=== PATIENT | male | born 1975 | race Caucasian/White ===

== ENCOUNTER 2024-04-19 10:14 | Inpatient (IN) | payer MEDICAID, OTHER ==
[~2024-04-19] VITALS: Ht 175.3 cm; Wt 84.0 kg
[2024-04-19 10:28] VITALS: PULSE 70; RESP 15; O2SAT 95
[2024-04-19 11:31] LABS: Urine Bacteria None Seen /hpf (None Seen)
[2024-04-19 11:40] LABS: Basophils # (auto) 0 10 ^3/uL (0-0.2); Basophils % (auto) 0.4 % (0.0-2.0); Eosinophils # (auto) 0.4 10 ^3/uL (0-0.8); Eosinophils % (auto) 3.8 % (0.0-7.0); Hematocrit 40.7 % (41.0-53.0); Hemoglobin 13.9 g/dL (13.5-17.5); Lymphocytes # (auto) 1.4 10 ^3/uL (0.4-5.4); Lymphocytes % (auto) 14.4 % (10.0-50.0); Mean Corpuscular Hemoglobin 31.4 pg (28.0-32.0); Mean Corpuscular Hgb Conc. 34.2 g/dL (32.0-36.0); Mean Corpuscular Volume 91.9 fL (80.0-100.0); Monocytes # (auto) 0.5 10 ^3/uL (0-1.3); Monocytes % (auto) 5.3 % (0.0-12.0); Neutrophils # (auto) 7.2 10 ^3/uL (1.6-8.6); Neutrophils % (auto) 76.1 % (37.0-80.0); Nucleated Red Blood Cells % 0.1 %; Red Blood Cells 4.43 10^6/uL (4.5-5.90); Red Cell Distribution Width 14.2 % (11.8-14.3); White Blood Cell 9.4 10^3/uL (4.4-10.8)
[2024-04-19 11:52] LABS: Urine Blood Negative /uL (Negative); Urine Clarity Clear (Clear); Urine Color Light-Yellow (Yellow); Urine Protein, UAD Negative (Negative); Urine Specific Gravity 1.012 (1.001-1.035); Urine Urobilinogen Normal (Negative); Urine WBC <1 /hpf (0 - 3); Urine pH 5.5 (5.0-9.0)
[2024-04-19 11:55] LABS: Alanine Aminotransferase 21 U/L (7-40); Albumin 4.6 g/dL (3.2-4.8); Alkaline Phosphatase 76 U/L (46-116); Anion Gap 2 (5-15); Aspartate Aminotransferase < 8 U/L (13-40); BUN/Creatinine Ratio 17.4 (10.0-20.0); Blood Urea Nitrogen 23 mg/dL (9-23); Calcium 9.6 mg/dL (8.5-10.1); Carbon Dioxide 30 mmol/L (20-30); Chloride 109 mmol/L (98-107); Glucose 102 mg/dL (74-106); Magnesium 1.8 mg/dL (1.6-2.6); Potassium 3.6 mmol/L (3.5-5.1); Sodium 141 mmol/L (136-145)
[2024-04-19 11:56] LABS: Bilirubin, Total 0.6 mg/dL (0.2-1.0); Total Protein 7.1 g/dL (5.7-8.2)
[2024-04-19] MEDS ORDERED: MORPHINE SULFATE INJ 2 MG/ml SYRG IV PRN (14:00)
[2024-04-19] MEDS ORDERED: NITROGLYCERIN 0.4 MG SL TAB SL PRN (14:00)
[2024-04-19 14:23] LABS: Magnesium 1.8 mg/dL (1.6-2.6)
[2024-04-19 14:24] LABS: Phosphorus 3.1 mg/dL (2.4-5.1)
[2024-04-19 19:30] VITALS: O2SAT 98
[2024-04-19] MEDS: ATORVASTATIN 20 MG TAB PO SCH (22:00)
[2024-04-19] MEDS ORDERED: LORazepam 2MG/ML-1ML VIAL IV PRN (23:00)
[2024-04-20] VITALS (9 sets, daily range): BP systolic 128–163; BP diastolic 78–95; PULSE 58–76; RESP 17–18; TEMP 97.2–98.9; O2SAT 93–98
[2024-04-20 06:34] LABS: Triglycerides 220 mg/dL (< 150)
[2024-04-20 06:35] LABS: LDL Cholesterol 65 mg/dL (< 100)
[2024-04-20 06:36] LABS: Cholesterol 134 mg/dL (< 200); HDL Cholesterol 34 mg/dL (40-59)
[2024-04-20] MEDS: CLOPIDOGREL BISULFATE 75 MG TAB PO SCH (09:53)
[2024-04-20] MEDS: ASPirin 81 mg TAB PO SCH (09:53)
[2024-04-20] MEDS: ENOXAPARIN SOD 40 MG/0.4 ML SYRINGE SC SCH (09:54)
[2024-04-20] MEDS: amLODIPine BESYLATE 5 MG TAB PO ONE (19:00)
[2024-04-21 01:00] VITALS: BP 137/91; PULSE 59; RESP 18; TEMP 98.4; O2SAT 100
[2024-04-21 05:00] VITALS: BP 136/91; PULSE 63; RESP 18; TEMP 97.9; O2SAT 96
[2024-04-21 08:00] VITALS: PULSE 62
[2024-04-21 09:00] VITALS: BP 139/83; PULSE 70; RESP 18; TEMP 97.8; O2SAT 95
[2024-04-21] MEDS: amLODIPine BESYLATE 5 MG TAB PO SCH (09:40)
[2024-04-21 13:00] VITALS: BP 139/105; PULSE 81; RESP 20; TEMP 98.7; O2SAT 94
[2024-04-21 17:00] VITALS: BP 146/103; PULSE 78; RESP 16; TEMP 98.7; O2SAT 94
== END 2024-04-21 20:09 | disposition home or self-care (01) | DRG 204 ==
LOC: ER 10:14 → EDBD 10:14 → TELE 14:03 → TELE-CENTR 23:45
PROVIDERS: ADMIT Internal Medicine; ATTEND Emergency Medicine
DX: R55 Syncope and collapse (principal); I69.351 Hemiplegia and hemiparesis following cerebral infarction affecting right dominant side; R47.01 Aphasia; K21.9 Gastro-esophageal reflux disease without esophagitis; F17.200 Nicotine dependence, unspecified, uncomplicated; E78.5 Hyperlipidemia, unspecified; I25.10 Atherosclerotic heart disease of native coronary artery without angina pectoris; G47.00 Insomnia, unspecified; I10 Essential (primary) hypertension; Z79.01 Long term (current) use of anticoagulants; Z79.82 Long term (current) use of aspirin; Z79.899 Other long term (current) drug therapy; Z79.02 Long term (current) use of antithrombotics/antiplatelets
CPT/HCPCS: 36415; 70450; 71045; 80053; 80061; 81001; 83605; 83735; 84100; 84484; 85025; 86592; 87081; 93005; 93306; 93886; 95819; 97116; 97163; 97530; G0378

== ENCOUNTER 2024-05-24 09:43 | Inpatient (IN) | payer MEDICAID ==
[~2024-05-24] VITALS: Ht 177.8 cm; Wt 82.7 kg
[2024-05-24 10:44] LABS: Basophils # (auto) 0 10 ^3/uL (0-0.2); Basophils % (auto) 0.5 % (0.0-2.0); Eosinophils # (auto) 0.3 10 ^3/uL (0-0.8); Eosinophils % (auto) 3.4 % (0.0-7.0); Hematocrit 41.5 % (41.0-53.0); Hemoglobin 13.8 g/dL (13.5-17.5); Lymphocytes # (auto) 1.2 10 ^3/uL (0.4-5.4); Lymphocytes % (auto) 15.1 % (10.0-50.0); Mean Corpuscular Hemoglobin 31.3 pg (28.0-32.0); Mean Corpuscular Hgb Conc. 33.4 g/dL (32.0-36.0); Mean Corpuscular Volume 93.7 fL (80.0-100.0); Monocytes # (auto) 0.5 10 ^3/uL (0-1.3); Monocytes % (auto) 6.1 % (0.0-12.0); Neutrophils # (auto) 6.1 10 ^3/uL (1.6-8.6); Neutrophils % (auto) 74.9 % (37.0-80.0); Nucleated Red Blood Cells % 0.1 %; Platelet Count (auto) 268 10^3/uL (140-450); Red Blood Cells 4.42 10^6/uL (4.5-5.90); Red Cell Distribution Width 13.8 % (11.8-14.3); White Blood Cell 8.1 10^3/uL (4.4-10.8)
[2024-05-24 10:52] LABS: Chloride 109 mmol/L (98-107); Potassium 3.7 mmol/L (3.5-5.1); Sodium 141 mmol/L (136-145)
[2024-05-24 10:53] LABS: Anion Gap 5 (5-15); Carbon Dioxide 27 mmol/L (20-30)
[2024-05-24 10:54] LABS: Calcium 9.4 mg/dL (8.7-10.4)
[2024-05-24 10:58] LABS: Glucose 89 mg/dL (74-106)
[2024-05-24 10:59] LABS: Blood Urea Nitrogen 17 mg/dL (9-23)
[2024-05-24 12:00] VITALS: PULSE 68; RESP 19; O2SAT 96
[2024-05-24] MEDS: SODIUM CHLORIDE 0.9% 1,000 ML IV ONE (13:12)
[2024-05-24] MEDS: LORazepam 2MG/ML-1ML VIAL IV ONE (13:12)
[2024-05-24] MEDS ORDERED: ONDANSETRON HCL 4 MG/2 ML VIAL IV PRN ×2 (13:45→14:30)
[2024-05-24] MEDS ORDERED: HYDROcodone-ACET 5/325MG TAB PO PRN (13:45)
[2024-05-24] MEDS ORDERED: LORazepam 2MG/ML-1ML VIAL IV PRN (13:45)
[2024-05-24] MEDS ORDERED: ACETAMINOPHEN 325 MG TAB PO PRN (13:45)
[2024-05-24] MEDS ORDERED: DOCUSATE SOD 100 MG CAP PO PRN (13:45)
[2024-05-24 14:11] LABS: Urine Bacteria None Seen /hpf (None Seen)
[2024-05-24] MEDS: SODIUM CHLOR 0.9% PF (SALINE LOCK) 10ML VIAL/SYR IV SCH (14:21)
[2024-05-24 14:25] LABS: Urine Blood Negative /uL (Negative); Urine Clarity Clear (Clear); Urine Color Colorless (Yellow); Urine Protein, UAD Negative (Negative); Urine Specific Gravity 1.008 (1.001-1.035); Urine Urobilinogen Normal (Negative); Urine WBC <1 /hpf (0 - 3); Urine pH 5.5 (5.0-9.0)
[2024-05-24] MEDS ORDERED: NITROGLYCERIN 0.4 MG SL TAB SL PRN (15:00)
[2024-05-24] MEDS ORDERED: MORPHINE SULFATE INJ 2 MG/ml SYRG IV PRN (15:00)
[2024-05-24] MEDS: levETIRAcetam 1000 mg/100ml 100 ML IV ONE (15:08)
[2024-05-24] MEDS: FAMOTIDINE (10MG/ML) 2ML VL IV SCH (23:07)
[2024-05-24] MEDS: ATORVASTATIN 20 MG TAB PO SCH (23:08)
[2024-05-24] MEDS: METOPROLOL TARTRATE 25 MG TAB PO SCH (23:08)
[2024-05-24] MEDS: APIXABAN 2.5 MG TAB PO SCH (23:08)
[2024-05-25 06:13] LABS: Basophils # (auto) 0 10 ^3/uL (0-0.2); Basophils % (auto) 0.5 % (0.0-2.0); Eosinophils # (auto) 0.3 10 ^3/uL (0-0.8); Eosinophils % (auto) 2.9 % (0.0-7.0); Hematocrit 40.3 % (41.0-53.0); Hemoglobin 14.2 g/dL (13.5-17.5); Lymphocytes # (auto) 1.9 10 ^3/uL (0.4-5.4); Lymphocytes % (auto) 19.6 % (10.0-50.0); Mean Corpuscular Hemoglobin 32.4 pg (28.0-32.0); Mean Corpuscular Hgb Conc. 35.1 g/dL (32.0-36.0); Mean Corpuscular Volume 92.1 fL (80.0-100.0); Monocytes # (auto) 0.7 10 ^3/uL (0-1.3); Monocytes % (auto) 6.8 % (0.0-12.0); Neutrophils # (auto) 6.9 10 ^3/uL (1.6-8.6); Neutrophils % (auto) 70.2 % (37.0-80.0); Platelet Count (auto) 256 10^3/uL (140-450); Red Blood Cells 4.37 10^6/uL (4.5-5.90); Red Cell Distribution Width 13.8 % (11.8-14.3); White Blood Cell 9.8 10^3/uL (4.4-10.8)
[2024-05-25 06:25] LABS: Alanine Aminotransferase 15 U/L (7-40); Albumin 4.3 g/dL (3.2-4.8); Alkaline Phosphatase 77 U/L (46-116); Anion Gap 4 (5-15); Aspartate Aminotransferase < 8 U/L (13-40); BUN/Creatinine Ratio 9.6 (10.0-20.0); Bilirubin, Total 1.4 mg/dL (0.2-1.0); Blood Urea Nitrogen 13 mg/dL (9-23); Calcium 9.2 mg/dL (8.7-10.4); Carbon Dioxide 29 mmol/L (20-30); Chloride 110 mmol/L (98-107); Glucose 84 mg/dL (74-106); Potassium 3.3 mmol/L (3.5-5.1); Sodium 143 mmol/L (136-145); Total Protein 6.7 g/dL (5.7-8.2)
[2024-05-25 09:50] LABS: Triglycerides 102 mg/dL (< 150)
[2024-05-25 09:51] LABS: LDL Cholesterol 59 mg/dL (< 100)
[2024-05-25 09:52] LABS: HDL Cholesterol 34 mg/dL (40-59)
[2024-05-25 09:53] LABS: Cholesterol 111 mg/dL (< 200)
[2024-05-25 10:21] LABS: Amphetamine Screen, Urine Neg (NEGATIVE)
[2024-05-25 10:22] LABS: Barbiturate Scree,Urine Neg (NEGATIVE); Benzodiazephine Screen, Urine Neg (NEGATIVE); Cannabinoid Screen, Urine Pos (NEGATIVE); Cocaine Screen, Urine Neg (NEGATIVE); Opiate Scree,Urine Neg (NEGATIVE); Phencyclidine Screen, Urine Neg (NEGATIVE)
[2024-05-25 11:00] VITALS: PULSE 65; RESP 14; O2SAT 95
[2024-05-25 19:30] VITALS: PULSE 78; RESP 13; O2SAT 97
[2024-05-25 22:40] LABS: Basophils # (auto) 0.1 10 ^3/uL (0-0.2); Basophils % (auto) 0.6 % (0.0-2.0); Eosinophils # (auto) 0.4 10 ^3/uL (0-0.8); Eosinophils % (auto) 3.8 % (0.0-7.0); Hematocrit 42.3 % (41.0-53.0); Hemoglobin 14.4 g/dL (13.5-17.5); Lymphocytes # (auto) 2.5 10 ^3/uL (0.4-5.4); Mean Corpuscular Hemoglobin 31.5 pg (28.0-32.0); Mean Corpuscular Hgb Conc. 33.9 g/dL (32.0-36.0); Mean Corpuscular Volume 92.7 fL (80.0-100.0); Monocytes # (auto) 0.8 10 ^3/uL (0-1.3); Neutrophils # (auto) 6.5 10 ^3/uL (1.6-8.6); Neutrophils % (auto) 63.6 % (37.0-80.0); Nucleated Red Blood Cells % 0.1 %; Platelet Count (auto) 254 10^3/uL (140-450); Red Blood Cells 4.57 10^6/uL (4.5-5.90); Red Cell Distribution Width 13.7 % (11.8-14.3); White Blood Cell 10.3 10^3/uL (4.4-10.8)
[2024-05-25 22:48] LABS: Chloride 109 mmol/L (98-107); Potassium 3.4 mmol/L (3.5-5.1); Sodium 142 mmol/L (136-145)
[2024-05-25 22:49] LABS: Anion Gap 2 (5-15); Carbon Dioxide 31 mmol/L (20-30)
[2024-05-25 22:50] LABS: Calcium 9.4 mg/dL (8.7-10.4)
[2024-05-25 22:55] LABS: BUN/Creatinine Ratio 11.2 (10.0-20.0); Blood Urea Nitrogen 16 mg/dL (9-23); Glucose 98 mg/dL (74-106)
[2024-05-25 23:09] VITALS: PULSE 63; RESP 18; O2SAT 96
[2024-05-25] MEDS ORDERED: HALOPERIDOL LACTATE 5 MG/ML INJ VIAL IM PRN (23:30)
[2024-05-25 23:55] VITALS: BP 167/105; PULSE 87; RESP 20; TEMP 97.6; O2SAT 87
[2024-05-26] VITALS (8 sets, daily range): BP systolic 121–154; BP diastolic 76–98; PULSE 66–81; RESP 16–20; TEMP 97.9–98.1; O2SAT 96–99
[2024-05-26] MEDS: hydrALAZINE HCL 20 MG/ML VL IV PRN (00:19)
[2024-05-26 07:27] LABS: Alanine Aminotransferase 15 U/L (7-40); Albumin 4.2 g/dL (3.2-4.8); Alkaline Phosphatase 76 U/L (46-116); Anion Gap 6 (5-15); Aspartate Aminotransferase < 8 U/L (13-40); BUN/Creatinine Ratio 12.2 (10.0-20.0); Bilirubin, Total 1.3 mg/dL (0.2-1.0); Blood Urea Nitrogen 16 mg/dL (9-23); Calcium 9.3 mg/dL (8.7-10.4); Carbon Dioxide 28 mmol/L (20-30); Chloride 109 mmol/L (98-107); Glucose 85 mg/dL (74-106); Potassium 3.1 mmol/L (3.5-5.1); Sodium 143 mmol/L (136-145); Total Protein 6.6 g/dL (5.7-8.2)
[2024-05-26] MEDS: POTASSIUM CHL 20 Meq TABLET PO ONE (09:33)
[2024-05-26 21:54] LABS: Alanine Aminotransferase 13 U/L (7-40); Albumin 4.3 g/dL (3.2-4.8); Alkaline Phosphatase 76 U/L (46-116); Anion Gap 4 (5-15); Aspartate Aminotransferase < 8 U/L (13-40); BUN/Creatinine Ratio 9.6 (10.0-20.0); Blood Urea Nitrogen 13 mg/dL (9-23); Calcium 9.4 mg/dL (8.7-10.4); Carbon Dioxide 26 mmol/L (20-30); Chloride 110 mmol/L (98-107); Glucose 95 mg/dL (74-106); Sodium 140 mmol/L (136-145)
[2024-05-26 21:55] LABS: Bilirubin, Total 1.1 mg/dL (0.2-1.0); Total Protein 6.8 g/dL (5.7-8.2)
[2024-05-27 04:34] VITALS: BP 144/91; PULSE 77; RESP 18; TEMP 98.2; O2SAT 99
[2024-05-27 08:10] VITALS: PULSE 64; PULSE 80; RESP 20; O2SAT 96
[2024-05-27 09:00] VITALS: BP 144/90; PULSE 64; RESP 18; TEMP 98; O2SAT 93
[2024-05-27 09:29] LABS: Alanine Aminotransferase 15 U/L (7-40); Albumin 4.4 g/dL (3.2-4.8); Alkaline Phosphatase 76 U/L (46-116); Anion Gap 6 (5-15); Aspartate Aminotransferase < 8 U/L (13-40); BUN/Creatinine Ratio 8.8 (10.0-20.0); Blood Urea Nitrogen 12 mg/dL (9-23); Calcium 9.1 mg/dL (8.7-10.4); Carbon Dioxide 24 mmol/L (20-30); Chloride 110 mmol/L (98-107); Glucose 85 mg/dL (74-106); Potassium 3.9 mmol/L (3.5-5.1); Sodium 140 mmol/L (136-145)
[2024-05-27 09:30] LABS: Bilirubin, Total 1.3 mg/dL (0.2-1.0)
[2024-05-27 09:32] LABS: Total Protein 7.1 g/dL (5.7-8.2)
[2024-05-27 13:00] VITALS: BP 140/87; PULSE 67; RESP 18; TEMP 98.2; O2SAT 94
[2024-05-27 14:04] VITALS: BP 140/87; PULSE 67; RESP 18; TEMP 98.2; O2SAT 94
== END 2024-05-27 17:01 | disposition home or self-care (01) | DRG 53 ==
LOC: EDBD 09:43 → ER 09:51 → TELE 15:01 → TELE-WESTW 05-25 22:50
PROVIDERS: ADMIT Internal Medicine; ATTEND Emergency Medicine
DX: G40.409 Other generalized epilepsy and epileptic syndromes, not intractable, without status epilepticus (principal); N17.0 Acute kidney failure with tubular necrosis; I69.351 Hemiplegia and hemiparesis following cerebral infarction affecting right dominant side; E78.5 Hyperlipidemia, unspecified; I48.91 Unspecified atrial fibrillation; R47.01 Aphasia; E87.6 Hypokalemia; I10 Essential (primary) hypertension; Z79.01 Long term (current) use of anticoagulants; Z79.899 Other long term (current) drug therapy
CPT/HCPCS: 36415; 70450; 80048; 80053; 80061; 80307; 81001; 82306; 82542; 82550; 82607; 83036; 83735; 85025; 93005; G0378; J3490

== ENCOUNTER 2024-09-24 08:00 | Inpatient (IN) | payer MEDICAID ==
[~2024-09-24] VITALS: Ht 177.8 cm; Wt 81.5 kg
[2024-09-24 08:30] VITALS: PULSE 79; RESP 18; O2SAT 97
[2024-09-24 09:02] LABS: Basophils # (auto) 0.1 10 ^3/uL (0-0.2); Basophils % (auto) 0.8 % (0.0-2.0); Eosinophils # (auto) 0.4 10 ^3/uL (0-0.8); Eosinophils % (auto) 4.5 % (0.0-7.0); Hemoglobin 14.8 g/dL (13.5-17.5); Lymphocytes # (auto) 1.4 10 ^3/uL (0.4-5.4); Lymphocytes % (auto) 17.3 % (10.0-50.0); Mean Corpuscular Hemoglobin 31.8 pg (28.0-32.0); Mean Corpuscular Hgb Conc. 33.6 g/dL (32.0-36.0); Mean Corpuscular Volume 94.4 fL (80.0-100.0); Monocytes # (auto) 0.4 10 ^3/uL (0-1.3); Monocytes % (auto) 5.7 % (0.0-12.0); Neutrophils # (auto) 5.7 10 ^3/uL (1.6-8.6); Neutrophils % (auto) 71.7 % (37.0-80.0); Platelet Count (auto) 317 10^3/uL (140-450); Red Blood Cells 4.66 10^6/uL (4.5-5.90); Red Cell Distribution Width 13.5 % (11.8-14.3); White Blood Cell 7.9 10^3/uL (4.4-10.8)
[2024-09-24 09:04] LABS: Potassium 4.1 mmol/L (3.5-5.1); Sodium 143 mmol/L (136-145)
[2024-09-24 09:05] LABS: Anion Gap 8 (5-15); Carbon Dioxide 27 mmol/L (20-31)
[2024-09-24 09:06] LABS: Calcium 9.8 mg/dL (8.7-10.4)
[2024-09-24 09:10] LABS: BUN/Creatinine Ratio 20.4 (10.0-20.0); Glucose 94 mg/dL (74-106)
[2024-09-24 09:11] LABS: Blood Urea Nitrogen 30 mg/dL (9-23); Chloride 108 mmol/L (98-107)
--- NOTE | 2024-09-24 09:22 | ED.PDOC ---
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 Caregiver reports on the witnessing the pt having a seizure and assisting the pt onto the ground today. It is unclear whether pt is taking seizure medication, as I do not see one on his medication list. Pt denies pain or recent illness. He has h/o global aphasia, so history is limited. Chief Complaint: Seizure Time Seen by MD: 08:40 Primary Care Provider: MOO Reviewed Notes: Nurses Notes, Medications, Allergies Allergies: Coded Allergies: NO KNOWN ALLERGIES (Unverified , 04/19/24) Home Meds No Active Prescriptions or Reported Meds Information Source: Patient Mode of Arrival: EMS Severity: Moderate Timing: Minutes Duration: Since onset, Minutes Prehospital treatment: None Past Medical History PAST MEDICAL HISTORY: CKF, CVA, High Lipids, Seizures Past Medical History (Other): Left MCA Chronic Stroke w/ Residual Right Sided Weakness, Epilepsy Surgical History: Denies all surgeries Surgical History (Other): Family History Family History: Reviewed,noncontributory to illness, Unknown Social History Smoker: Non-Smoker Alcohol: Denies ETOH Use Drugs: Denies Drug Use Lives In: Home Constitutional: denies: chills, diaphoresis, fatigue, fever, malaise, sweats, weakness, others EENTM: denies: blurred vision, double vision, ear bleeding, ear discharge, ear drainage, ear pain, ear ringing, eye pain, eye redness, hearing loss, mouth pain, mouth swelling, nasal discharge, nose bleeding, nose congestion, nose pain, photophobia, tearing, throat pain, throat swelling, voice changes, others Respiratory: denies: cough, hemoptysis, orthopnea, SOB at rest, shortness of breath, SOB with excertion, stridor, wheezing, others Cardiovascular: denies: chest pain, dizzy spells, diaphoresis, Dyspnea on exertion, edema, irregular heart beat, left arm pain, lightheadedness, palpitations, PND, syncope, others Gastrointestinal: denies: abdomen distended, abdominal pain, blood streaked bowels, constipated, diarrhea, dysphagia, difficulty swallowing, hematemesis, melena, nausea, poor appetite, poor fluid intake, rectal bleeding, rectal pain, vomiting, others Genitourinary: denies: burning, dysuria, flank pain, frequency, hematuria, incontinence, penile discharge, penile sore, pain, testicle pain, testicle swelling, urgency, others Neurological: reports: seizure; denies: dizziness, fainting, headache, left sided numbness, left sided weakness, numbness, paresthesia, pre-existing deficit, right sided numbness, right sided weakness, speech problems, tingling, tremors, weakness, others Musculoskeletal: denies: back pain, gout, joint pain, joint swelling, muscle pain, muscle stiffness, neck pain, others Integumetry: denies: bruises, change in color, change in hair/nails, dryness, laceration, lesions, lumps, rash, wounds, others Allergic/Immunocompromised: denies: Difficulty Healing, Frequent Infections, Hives, Itching, others Hematologic/Lymphatic: denies: anemia, blood clots, easy bleeding, easy bruising, swollen glands, others Endocrine: denies: excessive hunger, excessive sweating, excessive thirst, excessive urination, flushing, intolerance to cold, intolerance to heat, u nexplained weight gain, unexplained weight loss, others Psychiatric: denies: anxiety, bipolar disorder, depression, hopeless, panic disorder, schizophrenia, sleepless, suicidal, others All Other Systems: Reviewed and Negative Physical Exam General Appearance: No Apparent Distress HEENT: PERRL/EOMI Neck: Full Range of Motion, Non-Tender, Normal Inspection Respiratory: Chest Non-Tender, Lungs Clear, No Accessory Muscle Use, No Respiratory Distress, Normal Breath Sounds Cardiovascular: No Edema, No JVD, Regular Rate/Rhythm Breast Exam: Deferred Gastrointestinal: Non Tender, Soft Genitalia: Deferred Pelvic: Deferred Rectal: Deferred Extremities: Normal inspection, Normal range of motion, Non-tender, No pedal edema Musculoskeletal : Apperance: Normal Neurologic: Alert, Other (Can answer yes or no, otherwise aphasic, chronic right upper and lower extremity weakness. Moves left upper and lower extremities.) Cerebellar Function: NOT DONE Reflexes: NOT DONE Skin: Dry, Normal Color, Warm Lymphatic: NOT DONE Was a procedure done? Was a procedure done?: No EKG EKG : Comments Sinus rhythm, rate 91, normal [place] and QRS intervals, QTC 471, normal axis, poss ible old inferior infarct, nonspecific T change. Differential Dx Considerations may include: Breakthrough seizure, CVA, TIA, electrolyte imbalance, X-Ray, Labs, Meds, VS Vital Signs Date Time Temp Pulse Resp B/P (MAP) Pulse Ox O2 Delivery O2 Flow Rate FiO2 09/24/24 10:00 78 18 145/100 (115) 96 09/24/24 08:30 79 18 97 Room Air* 0 21 09/24/24 08:30 99.0 79 18 128/88 (101) 99 99.0 09/24/24 08:05 98.8 96 18 162/91 (114) 96 09/24/24 08:05 91 Lab Test 09/24/24 09:45 09/24/24 09:36 09/24/24 08:42 Range/Units Urine Color Light-yellow Yellow Urine Clarity Clear Clear Urine pH 6.0 5.0-9.0 Urine Specific [place] 1.011 1.001-1.035 Urine Protein Negative Negative Urine Ketones Negative Negative Urine Blood Negative Negative /uL Urine Nitrite Negative Negative Urine Bilirubin Negative Negative Urine Urobilinogen Normal Negative mg/dL Urine Leukocyte Esterase Negative Negative /uL Urine RBC 1 0 - 3 /hpf Urine WBC 1 0 - 3 /hpf Urine Squamous Epithelial Cells None seen <5 /hpf Urine Bacteria None seen None Seen /hpf Urine Glucose Normal Normal mg/dL Troponin I High Sensitivity 14 7 </=54 ng/L White Blood Count 7.9 4.4-10.8 10^3/uL Red Blood Count 4.66 4.5-5.90 10^6/uL Hemoglobin 14.8 13.5-17.5 g/dL Hematocrit 44.0 41.0-53.0 % Mean Corpuscular Volume 94.4 80.0-100.0 fL Mean Corpuscular Hemoglobin 31.8 28.0-32.0 pg Mean Corpuscular Hemoglobin Concent 33.6 32.0-36.0 g/dL Red Cell Distribution Width 13.5 11.8-14.3 % Platelet Count 317 140-450 10^3/uL Mean Platelet Volume 7.4 6.9-10.8 fL Neutrophils (%) (Auto) 71.7 37.0-80.0 % Lymphocytes (%) (Auto) 17.3 10.0-50.0 % Monocytes (%) (Auto) 5.7 0.0-12.0 % Eosinophils (%) (Auto) 4.5 0.0-7.0 % Basophils (%) (Auto) 0.8 0.0-2.0 % Neutrophils # (Auto) 5.7 1.6-8.6 10 ^3/uL Lymphocytes # (Auto) 1.4 0.4-5.4 10 ^3/uL Monocytes # (Auto) 0.4 0-1.3 10 ^3/uL Eosinophils # (Auto) 0.4 0-0.8 10 ^3/uL Basophils # (Auto) 0.1 0-0.2 10 ^3/uL Nucleated Red Blood Cells 0.0 % Sodium Level 143 136-145 mmol/L Potassium Level 4.1 3.5-5.1 mmol/L Chloride Level 108 H 98-107 mmol/L Carbon Dioxide Level 27 20-31 mmol/L Anion Gap 8 5-15 Blood Urea Nitrogen 30 H 9-23 mg/dL Creatinine 1.47 H 0.700-1.30 mg/dL Glomerular Filtration Rate Calc 58 >90 mL/min BUN/Creatinine Ratio 20.4 H 10.0-20.0 Serum Glucose 94 74-106 mg/dL Calcium Level 9.8 8.7-10.4 mg/dL B-Type Natriuretic Peptide 9.34 0-100 pg/mL X-Ray, Labs, Meds, VS Comment 49M w/ prior Hx of 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 Vitals remarkable for BP 162/91 Exam remarkable for chronic aphasia, and chronic right upper and lower extremity weakness Rhythm strip independently interpreted by me: Sinus rhythm, rate 91, no ectopy. CBC unremarkable, basic metabolic panel remarkable for BUN 30, creatinine 1.47, UA unremarkable, BNP and troponin negative Patient treated with the following in the ED: 1 L 0.9 normal saline IV bolus, placed on seizure precautions. Records from patient's last admission here were reviewed, last BUN and creatinine were 12 and 1.36. On re-evaluation, no new neurologic changes and no further seizure activity. I do not see antiseizure medications on the patient's medication list. Plan is to admit the patient for IV hydration and neurology evaluation. Time of 1ST Reevaluation: 09:10 Reevaluation 1ST: Unchanged Patient Education/Counseling: Diagnosis, Treatment, Prognosis Family Education/Counseling: No Family Present Additional Information I reviewed the following notes from the pt's past medical encounters: 05/24/24 The following tests were ordered, and results were reviewed by me: labs, EKG I discussed treatments and results with medical personnel and: (consultants, fam, etc) Departure 1 Departure Time of Disposition: 11:08 Impression: Primary Impression: Acute kidney injury superimposed on chronic kidney disease Additional Impression: Recurrent seizures Disposition: ADMITTED INPATIENT Admit to: Tele Condition: Guarded e-Prescriptions No Active Prescriptions or Reported Meds Critical Care Note Critical Care Time?: No Stability Stability form required: No Heart Score Heart Score: Heart Score Response (Comments) Value History N/A 0 EKG N/A 0 Age N/A 0 Risk Factors N/A 0 Troponin N/A 0 Total 0 I personally scribed for EMILY ESTRADA MD ([email or web address]) on 09/24/24 at 09:22. Electronically submitted by Dave Diaz ([email or web address]). EMILY ESTRADA MD Sep 24, 2024 09:22
[2024-09-24 10:15] LABS: Urine Bacteria None Seen /hpf (None Seen)
[2024-09-24 10:25] LABS: Urine Blood Negative /uL (Negative); Urine Clarity Clear (Clear); Urine Color Light-Yellow (Yellow); Urine Protein, UAD Negative (Negative); Urine Specific Gravity 1.011 (1.001-1.035); Urine Urobilinogen Normal (Negative); Urine WBC 1 /hpf (0 - 3)
[2024-09-24] MEDS: SODIUM CHLORIDE 0.9% 1,000 ML IV ONE (11:44)
[2024-09-24] MEDS ORDERED: ACETAMINOPHEN 325 MG TAB PO PRN (12:15)
[2024-09-24] MEDS ORDERED: ONDANSETRON HCL 4 MG/2 ML VIAL IV PRN (12:15)
[2024-09-24] MEDS ORDERED: MORPHINE SULFATE INJ 2 MG/ml SYRG IV PRN (12:15)
[2024-09-24] MEDS ORDERED: DOCUSATE SOD 100 MG CAP PO PRN (12:15)
[2024-09-24] MEDS ORDERED: TEMAZEPAM 15 MG CAP PO PRN (12:15)
[2024-09-24] MEDS ORDERED: MAALOX PLUS or MAALOX 30 ML PO PRN (12:15)
[2024-09-24] MEDS ORDERED: HYDROcodone-ACET 5/325MG TAB PO PRN (12:15)
[2024-09-24] MEDS: levETIRAcetam 500 mg/100ml 100 ML IV SCH (13:39)
[2024-09-24 19:30] VITALS: PULSE 76; RESP 16; O2SAT 95
[2024-09-25] VITALS (7 sets, daily range): BP systolic 129–150; BP diastolic 78–95; PULSE 66–86; RESP 16–18; TEMP 97.9–99.1; O2SAT 91–97
[2024-09-25] MEDS: LORazepam 0.5 MG TAB PO PRN (01:47)
[2024-09-25] MEDS ORDERED: LORazepam 2MG/ML-1ML VIAL IV PRN (02:45)
[2024-09-25] MEDS ORDERED: HYDR50TA47 PO (05:42)
[2024-09-25] MEDS ORDERED: ISOS20TA5 PO (05:42)
[2024-09-25] MEDS ORDERED: APIX2.5T PO (05:42)
[2024-09-25] MEDS ORDERED: PANT1INJ3 IV (05:42)
[2024-09-25] MEDS ORDERED: METO25TA5 PO (05:42)
[2024-09-25] MEDS ORDERED: ATOR20TA50 PO (05:42)
[2024-09-25] MEDS ORDERED: FEBU40TA PO (05:42)
[2024-09-25] MEDS ORDERED: FURO20TA3 PO (05:42)
[2024-09-25 06:10] LABS: Basophils # (auto) 0.1 10 ^3/uL (0-0.2); Basophils % (auto) 0.5 % (0.0-2.0); Eosinophils # (auto) 0.2 10 ^3/uL (0-0.8); Eosinophils % (auto) 2.6 % (0.0-7.0); Hematocrit 43.7 % (41.0-53.0); Hemoglobin 15.2 g/dL (13.5-17.5); Lymphocytes # (auto) 1.9 10 ^3/uL (0.4-5.4); Mean Corpuscular Hemoglobin 32.5 pg (28.0-32.0); Mean Corpuscular Hgb Conc. 34.7 g/dL (32.0-36.0); Mean Corpuscular Volume 93.6 fL (80.0-100.0); Monocytes # (auto) 0.7 10 ^3/uL (0-1.3); Monocytes % (auto) 7.1 % (0.0-12.0); Neutrophils # (auto) 6.6 10 ^3/uL (1.6-8.6); Neutrophils % (auto) 69.8 % (37.0-80.0); Platelet Count (auto) 282 10^3/uL (140-450); Red Blood Cells 4.67 10^6/uL (4.5-5.90); Red Cell Distribution Width 13.5 % (11.8-14.3); White Blood Cell 9.5 10^3/uL (4.4-10.8)
[2024-09-25 06:23] LABS: Anion Gap 9 (5-15); Carbon Dioxide 25 mmol/L (20-31); Chloride 107 mmol/L (98-107); Potassium 3.5 mmol/L (3.5-5.1); Sodium 141 mmol/L (136-145)
[2024-09-25 06:24] LABS: Calcium 9.6 mg/dL (8.7-10.4)
[2024-09-25 06:29] LABS: BUN/Creatinine Ratio 12.9 (10.0-20.0); Blood Urea Nitrogen 18 mg/dL (9-23); Glucose 87 mg/dL (74-106)
--- NOTE | 2024-09-25 12:57 | DVHHP2 ---
History of Present Illness Reason for Visit: Seizure History of Present Illness 49-year-old male with a history of a stroke in the past, seizure disorder, chronic kidney disease, dyslipidemia comes with chief complaint of breakthrough seizure COMMUNICATIONS DIRECTOR: Seizure Renal/: Chronic renal insuff Review of Systems Allergies: Coded Allergies: NO KNOWN ALLERGIES (Unverified , 04/19/24) Medications Current Medications Medications Dose Ordered Sig/Kari Route Start Time Stop Time Status Last Admin Dose Admin Lorazepam 0.5 mg Q6HP PRN PO 09/24/24 12:15 09/25/24 01:47 0.5 MG Al Hydrox/Mg Hydrox/Simethicone 30 ml Q6HP PRN PO 09/24/24 12:15 Docusate Sodium 100 mg BIDPRN PRN PO 09/24/24 12:15 Acetaminophen 650 mg Q6HP PRN PO 09/24/24 12:15 Temazepam 15 mg QHSP PRN PO 09/24/24 12:15 Acetaminophen/ Hydrocodone Bitart 1 tab Q4HP PRN PO 09/24/24 12:15 Ondansetron HCl 4 mg Q4HP PRN IV 09/24/24 12:15 Morphine Sulfate 2 mg Q4HPRN PRN IV 09/24/24 12:15 Levetiracetam 100 ml @ 400 mls/hr BID IV 09/24/24 12:15 09/25/24 12:15 400 MLS/HR Lorazepam 1 mg Q2HPRN PRN IV 09/25/24 02:45 Enteral Nutritional Formula 240 ml TID PO 09/25/24 14:00 UNV Exam Vital Signs Vital Signs Date Time Temp Pulse Resp B/P (MAP) Pulse Ox O2 Delivery O2 Flow Rate FiO2 09/25/24 08:49 98.1 82 16 137/88 (104) 94 98.1 09/25/24 01:28 Room Air* 0 21 General Appearance: Alert, No acute distress Respiratory: Clear to auscultation, Normal air movement Cardiovascular: Regular rate, Normal S1, Normal S2 Abdominal: Normal bowel sounds, Soft, No tenderness Extremities: No edema Labs/Xrays Labs Test 09/25/24 04:37 09/24/24 13:33 09/24/24 09:45 09/24/24 08:42 Range/Units White Blood Count 9.5 4.4-10.8 10^3/uL Red Blood Count 4.67 4.5-5.90 10^6/uL Hemoglobin 15.2 13.5-17.5 g/dL Hematocrit 43.7 41.0-53.0 % Mean Corpuscular Volume 93.6 80.0-100.0 fL Mean Corpuscular Hemoglobin 32.5 H 28.0-32.0 pg Mean Corpuscular Hemoglobin Concent 34.7 32.0-36.0 g/dL Red Cell Distribution Width 13.5 11.8-14.3 % Platelet Count 282 140-450 10^3/uL Mean Platelet Volume 7.4 6.9-10.8 fL Neutrophils (%) (Auto) 69.8 37.0-80.0 % Lymphocytes (%) (Auto) 20.0 10.0-50.0 % Monocytes (%) (Auto) 7.1 0.0-12.0 % Eosinophils (%) (Auto) 2.6 0.0-7.0 % Basophils (%) (Auto) 0.5 0.0-2.0 % Neutrophils # (Auto) 6.6 1.6-8.6 10 ^3/uL Lymphocytes # (Auto) 1.9 0.4-5.4 10 ^3/uL Monocytes # (Auto) 0.7 0-1.3 10 ^3/uL Eosinophils # (Auto) 0.2 0-0.8 10 ^3/uL Basophils # (Auto) 0.1 0-0.2 10 ^3/uL Nucleated Red Blood Cells 0.0 % Sodium Level 141 136-145 mmol/L Potassium Level 3.5 3.5-5.1 mmol/L Chloride Level 107 98-107 mmol/L Carbon Dioxide Level 25 20-31 mmol/L Anion Gap 9 5-15 Blood Urea Nitrogen 18 # 9-23 mg/dL Creatinine 1.40 H 0.700-1.30 mg/dL Glomerular Filtration Rate Calc 62 >90 mL/min BUN/Creatinine Ratio 12.9 10.0-20.0 Serum Glucose 87 74-106 mg/dL Calcium Level 9.6 8.7-10.4 mg/dL Troponin I High Sensitivity 31 </=54 ng/L Urine Color Light-yellow Yellow Urine Clarity Clear Clear Urine pH 6.0 5.0-9.0 Urine Specific [place] 1.011 1.001-1.035 Urine Protein Negative Negative Urine Ketones Negative Negative Urine Blood Negative Negative /uL Urine Nitrite Negative Negative Urine Bilirubin Negative Negative Urine Urobilinogen Normal Negative mg/dL Urine Leukocyte Esterase Negative Negative /uL Urine RBC 1 0 - 3 /hpf Urine WBC 1 0 - 3 /hpf Urine Squamous Epithelial Cells None seen <5 /hpf Urine Bacteria None seen None Seen /hpf Urine Glucose Normal Normal mg/dL B-Type Natriuretic Peptide 9.34 0-100 pg/mL Assessment/Plan Assessment/Plan Breakthrough seizure Old CVA with right-sided weakness and aphasia Chronic renal insufficiency Dyslipidemia History of methamphetamine use Plan Change Keppra to 500 mg p.o. twice a day Resume the home medications Toprol-XL 25 mg daily Lipitor 20 mg daily Eliquis 2.5 mg twice a day Start physical therapy Full code Advance directives discussed for 20 minute Plan discussed with: Patient Date of Service: Sep 25, 2024 Billing Provider: MAYRA NELSON MD Common Visit Codes: 70725-BFLLFRF INP/OBS CARE (HIGH) Secondary Visit Codes: 07752-CRYEFYAE CARE PLAN 30 MINUTES MAYRA NELSON MD Sep 25, 2024 12:57
[2024-09-25] MEDS: Glucerna Carbsteady SHAKE Vanilla 8oz PO SCH (14:30)
[2024-09-25] MEDS: levETIRAcetam 500 MG TAB PO SCH (22:28)
[2024-09-25] MEDS: APIXABAN 2.5 MG TAB PO SCH (22:29)
[2024-09-26 05:00] VITALS: BP 151/98; PULSE 68; RESP 18; TEMP 98.5; O2SAT 96
[2024-09-26 08:00] VITALS: PULSE 83; RESP 20; O2SAT 97
[2024-09-26 09:00] VITALS: BP 152/90; PULSE 83; RESP 20; TEMP 97.5; O2SAT 97
[2024-09-26] MEDS ORDERED: KEP500T PO (09:34)
[2024-09-26 11:34] VITALS: BP 152/90; PULSE 83; RESP 20; TEMP 97.5; O2SAT 97
--- NOTE | 2024-09-26 11:52 | DVHDS2 ---
Discharge Summary Date of Admission Sep 24, 2024 at 12:12 Date of Discharge: Sep 26, 2024 Labs/Diagnostic Data: Laboratory Results Test 09/25/24 04:37 09/24/24 13:33 09/24/24 09:45 09/24/24 08:42 White Blood Count 9.5 10^3/uL (4.4-10.8) Red Blood Count 4.67 10^6/uL (4.5-5.90) Hemoglobin 15.2 g/dL (13.5-17.5) Hematocrit 43.7 % (41.0-53.0) Mean Corpuscular Volume 93.6 fL (80.0-100.0) Mean Corpuscular Hemoglobin 32.5 pg (28.0-32.0) Mean Corpuscular Hemoglobin Concent 34.7 g/dL (32.0-36.0) Red Cell Distribution Width 13.5 % (11.8-14.3) Platelet Count 282 10^3/uL (140-450) Mean Platelet Volume 7.4 fL (6.9-10.8) Neutrophils (%) (Auto) 69.8 % (37.0-80.0) Lymphocytes (%) (Auto) 20.0 % (10.0-50.0) Monocytes (%) (Auto) 7.1 % (0.0-12.0) Eosinophils (%) (Auto) 2.6 % (0.0-7.0) Basophils (%) (Auto) 0.5 % (0.0-2.0) Neutrophils # (Auto) 6.6 10 ^3/uL (1.6-8.6) Lymphocytes # (Auto) 1.9 10 ^3/uL (0.4-5.4) Monocytes # (Auto) 0.7 10 ^3/uL (0-1.3) Eosinophils # (Auto) 0.2 10 ^3/uL (0-0.8) Basophils # (Auto) 0.1 10 ^3/uL (0-0.2) Nucleated Red Blood Cells 0.0 % Sodium Level 141 mmol/L (136-145) Potassium Level 3.5 mmol/L (3.5-5.1) Chloride Level 107 mmol/L (98-107) Carbon Dioxide Level 25 mmol/L (20-31) Anion Gap 9 (5-15) Blood Urea Nitrogen 18 mg/dL (9-23) Creatinine 1.40 mg/dL (0.700-1.30) Glomerular Filtration Rate Calc 62 mL/min (>90) BUN/Creatinine Ratio 12.9 (10.0-20.0) Serum Glucose 87 mg/dL (74-106) Calcium Level 9.6 mg/dL (8.7-10.4) Troponin I High Sensitivity 31 ng/L (</=54) Urine Color Light-yellow (Yellow) Urine Clarity Clear (Clear) Urine pH 6.0 (5.0-9.0) Urine Specific [place] 1.011 (1.001-1.035) Urine Protein Negative (Negative) Urine Ketones Negative (Negative) Urine Blood Negative /uL (Negative) Urine Nitrite Negative (Negative) Urine Bilirubin Negative (Negative) Urine Urobilinogen Normal mg/dL (Negative) Urine Leukocyte Esterase Negative /uL (Negative) Urine RBC 1 /hpf (0 - 3) Urine WBC 1 /hpf (0 - 3) Urine Squamous Epithelial Cells None seen /hpf (<5) Urine Bacteria None seen /hpf (None Seen) Urine Glucose Normal mg/dL (Normal) B-Type Natriuretic Peptide 9.34 pg/mL (0-100) Other Laboratory Tests 09/25/24 04:37 Brief Hx & Hospital Course: Final diagnoses: Breakthrough seizure Old CVA with right-sided weakness and aphasia Chronic renal insufficiency Dyslipidemia History of methamphetamine use 49-year-old male with a history of seizures came with a seizure. He was started on IV Keppra. He does not know if he takes seizure medication at home, we tried to contact his caregiver but there no answer Here since admission he is doing okay with no more seizures, the patient is aphasic and although he can speak few words but he mostly says yes and no and does not elaborate more so he does not know his medical history The patient is able to ambulate He is asymptomatic otherwise The patient is stable for discharge I tried to call the caregiver to give an update about there is no answer He has home medications list Eliquis and Lipitor and Lasix and hydralazine and isosorbide dinitrate and metoprolol and Protonix however there is no seizure medication and therefore we will add Keppra 500 mg twice a day to his home medications Follow up with his PCP as soon as possible Condition at Discharge: Stable Final Diagnosis/Problems List Breakthrough seizure Old CVA with right-sided weakness and aphasia Chronic renal insufficiency Dyslipidemia History of methamphetamine use Discharge Disposition: Home SNF Discharge Will this Physician continue t: No Discharge Instruct/Medications Diet: Cardiac 2g Na,low cholest Activity: No Restrictions, As Tolerated Follow Up/Referral: PCP C[facility] Medications: Keppra 500 mg bid Resume other home meds Discharge Statement: "Patient was advised to return to the ER or call 911 if any headaches, dizziness, shortness of breath, chest pain, abdominal pain, bleeding, fevers, or worsening of medical condition. Patient was counseled about treatment plan, medications, possible side effects, patientverbalized understanding. All questions were answered to the best of my ability. This discharge took greater then 30 minutes in planning, reviewing documentation, counseling the patient, and discussing with other team members." ASSESSMENT ASSESSMENT Assessment Breakthrough seizure Old CVA with right-sided weakness and aphasia Chronic renal insufficiency Dyslipidemia History of methamphetamine use Date of Service: Sep 26, 2024 Billing Provider: MAYRA NELSON MD Common Visit Codes: 16238-QHR/OBS DISCH DAY >30min MAYRA NELSON MD Sep 26, 2024 11:52
[2024-09-26] MEDS: METOPROLOL SUCCINATE XL 50 MG TAB PO SCH (12:35)
--- NOTE | 2024-09-26 15:30 | ECG ---
[facility] Test Date: 2024-09-24 Test Time: 08:05:50 Pat Name: GILBERTO RIOS Department: ED Room: 0212 A Gender: M [place] Opener: DOMINGUEZ : 1975 Requested By: EMILY KNAPP Order Number: [id number] Reading MD: Evan Ayala Measurements Intervals [place] Rate: 91 P: 72 LA: 165 QRS: 22 QRSD: 95 T: 78 QT: 382 QTc: 471 Interpretive Statements Sinus rhythm Probable left atrial enlargement Inferior infarct, old Electronically Signed On 09-30-2024 9:55:33 PST by Evan Ayala Please click the below link to view image of tracing.
[2024-09-26] MEDS ORDERED: ATORVASTATIN 20 MG TAB PO SCH (22:00)
== END 2024-09-26 12:54 | disposition home or self-care (01) | DRG 53 ==
LOC: EDSEX 08:00 → EDBD 08:00 → ER 08:00 → OVERFLOW 12:12 → CENTRAL 09-25 00:45
PROVIDERS: ADMIT Hospitalist; ATTEND Internal Medicine Geriatric Medicine
DX: G40.909 Epilepsy, unspecified, not intractable, without status epilepticus (principal); I69.351 Hemiplegia and hemiparesis following cerebral infarction affecting right dominant side; F15.90 Other stimulant use, unspecified, uncomplicated; E78.5 Hyperlipidemia, unspecified; N18.9 Chronic kidney disease, unspecified; I69.320 Aphasia following cerebral infarction; Z79.899 Other long term (current) drug therapy; Z79.01 Long term (current) use of anticoagulants
CPT/HCPCS: 36415; 80048; 81001; 83880; 84484; 85025; 93005; 97163; G0378